=== PATIENT | female | born 1970 | race Caucasian/White ===

== ENCOUNTER 2022-02-07 08:57 | Outpatient (CLI) | payer OTHER, SELFPAY ==
--- NOTE | ~2022-02-07 | MR_ITS ---
. EXAMINATION: MR lumbar spine wo con DATE: 02/07/2022 10:17 INDICATION: Low back pain. TECHNIQUE: Magnetic resonance imaging (MRI) of the lumbar spine was performed without intravenous con trast. Sequences included sagittal T2-weighted FSE, sagittal T2-weighted FS FSE, sagittal T1-weighted FSE, and axial T2-weighted FSE. COMPARISON: None FINDINGS: There are chronic bilateral L5 pars defects. There is 3 mm retrolisthesis of L1 on L2. Ther e is 3 mm anterolisthesis of L5 on S1. There is mild chronic height loss of L5 vertebral body posteri alexx. There is mildly decreased disc height at L1-L2 and L4-L5 and severely decreased disc height at L5-S1. The distal spinal cord signal intensity is normal. The conus medullaris is at T12-L1. The foll owing disc levels are specifically discussed: L1-L2: The disc is bulging and has an annular fissure. There is mild bilateral facet joint osteoarthr itis. There is mild bilateral neural foraminal stenosis. There is mild central canal stenosis. L2-L3: The disc is bulging. There is mild bilateral facet joint osteoarthritis. There is mild bilater al neural foraminal stenosis. There is mild central canal stenosis. L3-L4: The disc is bulging. There is severe bilateral facet joint osteoarthritis. There is mild bilat eral neural foraminal stenosis. There is mild central canal stenosis. L4-L5: The disc is bulging and has an annular fissure. There is mild bilateral facet joint osteoarthr itis. There is mild bilateral neural foraminal stenosis. There is mild central canal stenosis. L5-S1: The disc is bulging and has an annular fissure. There is mild bilateral facet joint osteoarthr itis. There is mild bilateral neural foraminal stenosis. There is mild central canal stenosis. IMPRESSION: 1. Severe lower lumbar spondylosis. 2. Chronic bilateral L5 pars defects with grade 1 anterolisthesis of L5 on S1. Reviewed, dictated and finalized at location A.
--- NOTE | ~2022-02-07 | MR_ITS ---
EXAMINATION: MR cervical spine wo con DATE: 02/07/2022 10:13 INDICATION: Neck pain. TECHNIQUE: Magnetic resonance imaging (MRI) of the cervical spine was performed without intravenous c ontrast. Sequences included sagittal T2-weighted FSE, sagittal T2-weighted FS FSE, sagittal T1-weight ed FSE, axial MERGE, and axial T2-weighted FSE. COMPARISON: Cervical spine MRI 12/20/2016 FINDINGS: There is 2 mm additional listhesis of C6 on C7 and 2 mm anterolisthesis of C7 on T1. Verteb ral body heights are normal. There is severely decreased disc height at C6-C7 and mildly decreased di sc height at C7-T1. The spinal cord signal intensity is normal. The following disc levels are specifi antoine discussed: C2-C3: The disc does not extend beyond the endplate margin. There is no uncovertebral joint osteoarth ritis. There is mild bilateral facet joint osteoarthritis. There is no neural foraminal stenosis. The re is no central canal stenosis. C3-C4: The disc is bulging. There is moderate right and mild left uncovertebral joint osteoarthritis. There is severe right facet joint osteoarthritis. There is mild right neural foraminal stenosis. The re is mild central canal stenosis. C4-C5: The disc does not extend beyond the endplate margin. There is no uncovertebral joint osteoarth ritis. There is no facet joint osteoarthritis. There is no neural foraminal stenosis. There is no pedro tral canal stenosis. C5-C6: The disc is bulging. There is moderate right and mild left uncovertebral joint osteoarthritis. There is no facet joint osteoarthritis. There is no neural foraminal stenosis. There is mild central canal stenosis. C6-C7: The disc is bulging. There is severe bilateral uncovertebral joint osteoarthritis. There is se nicky left facet joint osteoarthritis. There is mild right and moderate left neural foraminal stenosis . There is mild central canal stenosis. C7-T1: There is a central extrusion. There is mild bilateral uncovertebral joint osteoarthritis. Ther e is severe bilateral facet joint osteoarthritis. There is mild right and moderate left neural forami nal stenosis. There is mild central canal stenosis. IMPRESSION: 1. Severe cervical spondylosis, worsened from 12/20/16. Reviewed, dictated and finalized at location A.
== END 2022-02-07 08:58 | disposition home or self-care (01) ==
PROVIDERS: PCP Family Medicine; Visit Provider Physician Assistant Medical
DX: M47.892 Other spondylosis, cervical region (principal); M47.896 Other spondylosis, lumbar region
CPT/HCPCS: 72141; 72148

== ENCOUNTER 2022-07-16 01:04 | Day surgery (SDC) | payer MEDICARE, SELFPAY ==
[2022-07-11 14:14] VITALS: BMI 28.5
--- NOTE | 2022-07-11 15:09 | SUR.PREOP ---
Report to the Outpatient Waiting Room, entrance under the green pavilion located off [facility], at time 0800 on date 07/16/22. OR Time: 1000. Time changes happen often and if your time is changed the preop area will call you the afternoon before. - You and your visitor will be asked to self-screen and do not enter if you have any COVID symptoms. - Only one visitor and NO children visitors are allowed at this time. - The patient visitor is requested to leave or wait in car when not with patient due to restrictions. - A mask is required within the hospital. Patients may have clear liquids (water, carbonated beverages, clear teas, apple juice) until 3 hours prior to surgery with a maximum of 20 ounces. - No food from midnight until time of surgery - Infants may have breast milk until 4 hours before surgery, infant formula 6 hours prior to surgery. - Children will be allowed to drink immediately following surgery. If applicable, please bring a bottle or sippy cup to assist with drinking. Juice, water, soda, and popsicles are readily available. For infants on formula, please bring formula the day of surgery. Pacifiers are allowed. Take the following medications with a SIP of water the morning of surgery: MAY TAKE TRAMADOL IF NEEDED Medications to discontinue per physician HOLD ALL VITAMINES AND SUPPLIMENTS FOR 3 DAYS PRIOR TO PROCEDURE Date to take last dose 07/13/22 Please no make-up, nail trinidadian, hairspray, perfume, deodorant, or body powder the day of surgery. No jewelry (including any body piercings) or valuables the day of surgery, leave them at home. Please take a shower or bath the night before, or the morning of, surgery with an antibacterial soap. Wear comfortable, loose fitting clothing. Children are encouraged to wear pajamas. - Jewelry must be removed prior to entering the operating room. Rings and piercings that are not removed may be cut off. - The hospital will not accept responsibility for valuables. - Please leave all valuables, including medications, at home the day of surgery. If you are going home after surgery, a licensed school boat driver must drive you home. - NO public transportation without another adult. - We recommend that an adult stay with you for 24 hours following discharge. - We also recommend that you do not drive, make important decision, drink alcoholic beverages, or take any drugs that were not prescribed by your health care provider for at least 24 hours after your discharge time. For Pediatric surgeries, we recommend two adults accompany the child home (only one inside the building at this time). Follow any additional instructions given to you from your surgeon. If you or anyone in your household have experienced Covid symptoms in the past week, please notify your surgeon or the nurse liaison at the phone number below for possible testing. Telephone instructions given to DON LEE and asked if any additional questions and then verbalized understanding. Patient advised to call surgeon office or pre surgery nurse liaison [phone] if any additional questions.
[2022-07-16] VITALS (10 sets, daily range): BP systolic 116–133; BP diastolic 78–88; PULSE 69–81; RESP 12–15; TEMP 36.6–37.2; O2SAT 92–100
[2022-07-16] MEDS: LACTATED RINGERS 1,000 ML 30 ML IV CONT ×2 (09:10→11:40)
--- NOTE | 2022-07-16 09:14 | WPDHPUPDATE1 ---
History and Physical Update Update Date/Time: 07/16/22 09:14 History and Physical has been reviewed, including an updated exam of the patient. There are NO changes in the patient's condition. Risks, benefits, and alternatives have been discussed and questions answered. Patient agrees to proceed with procedure.
[2022-07-16] MEDS: KETOROLAC 15 MG/ML VIAL (*BKC) IV PUSH (09:20)
[2022-07-16] MEDS: ACETAMINOPHEN 500 MG TABLET 1000 MG PO (09:20)
[2022-07-16] MEDS: SCOPOLAMINE 1.5 MG PATCH TRANSDERM (09:33)
--- NOTE | 2022-07-16 09:37 | WPDANESEPPF ---
Anes - Initial Pre Proc Eval Procedure: Operation Date: 07/16/22 10:00 Proposed Procedures p Right Thumb Carpometacarpal Arthroplasty - Ramos Polk MD Date/Time: 07/16/22 09:37 Surgeon: Ramos Polk MD Pre Op Diagnosis: Rt Thumb CMC Arthritis Patient Data Age: 52 Gender: F Height: 1.68 m Weight: 80.4 kg Last Vital Signs Temp 37.2 C 07/16/22 09:05 Pulse 77 07/16/22 09:05 Resp 14 07/16/22 09:05 BP 132/88 07/16/22 09:05 Pulse Ox 100 07/16/22 09:05 O2 Del Method Room Air 07/16/22 09:05 Allergies Allergy/AdvReac Type Severity Reaction Status Date / Time Cephalosporins Allergy Mild HIVES Verified 07/16/22 09:02 cefprozil Allergy Unknown Hives Verified 07/16/22 09:02 Penicillins Allergy Unknown Rash Verified 07/16/22 09:02 morphine AdvReac Intermediate Hyperactive Verified 07/16/22 09:02 Home Medications Medication Instructions Recorded Confirmed Type sumatriptan succinate 25 mg tablet See Rx Instructions PO .COMPLEX 09/27/20 07/11/22 Rx #30 tabs triamcinolone acetonide 0.1 % See Rx Instructions .Route 11/27/20 07/11/22 Rx topical cream .COMPLEX #80 grams magnesium 200 mg tablet 200 mg PO DAILY 12/22/20 07/11/22 History tramadol 50 mg tablet 50 mg PO Q6H PRN pain #60 tabs 05/03/22 07/11/22 Rx meloxicam 7.5 mg tablet 7.5 mg PO DAILY #30 tabs 05/14/22 07/11/22 Rx Patient hx anesthesia problems: none Family hx anesthesia problems: none Results Review: All pre-operative results and documents have been reviewed as part of the pre-operative evaluation. [facility] Past Medical History Medical History BMI 28.0-28.9,adult Cervicalgia Concussion COVID-19 Finger fracture, right (~2002) fourth finger Medial meniscus tear (~2011) left Obesity (BMI 30.0-34.9) Osteoarthritis of carpometacarpal joint of right thumb Right knee pain Rotator cuff tear (~2007) right Tinea pedis Wears contact lenses Surgical History Surgical History H/O section (~1998) History of arthroplasty (~2017) left thumb CMC History of arthroscopic surgery of elbow (~2009) right History of arthroscopic surgery of elbow (~2005) left History of arthroscopic surgery of elbow (~2003) left History of arthroscopy of shoulder (~2007) right, rotator cuff tear History of arthroscopy of shoulder (~2016) right, bone spurs History of hysterectomy (~2017) History of ovarian cystectomy (~2013) Hx of bilateral oophorectomy (~2017) Hx of cholecystectomy (~1994) Family History Family History Father Diabetes mellitus Family history of cardiovascular disease Mother Hypertension Cerebrovascular accident Other Family history of allergic disorder Family history of malignant neoplasm Social History Social History Smoking status: Never smoker Additional smoking assessment comments: (not tobacco) Alcohol intake: current Substance use: current Substance use type: marijuana Other substance usage details: DAILY Living arrangements: with family Additional occupation/education comments: disabled Gender identity (if verbalized by the patient): Female Spiritual care concerns: No Anes - Eval Final PreProcedure Day of Procedure 07/16/22 09:37 Patient weight: overweight Heart: regular rate and rhythm Lungs: clear to auscultation Airway: Mallampati scale class II Neurological: alert and oriented Last oral intake: >/= 8 hours ASA classification: III Emergent: no Anesthetic plan: proceed Anesthesia type and monitoring: general LMA and standard monitoring Results Review: All pre-operative results and documents have been reviewed as part of the pre-operative evaluation. Informed Consent: The patient's anesthetic plan and its attendant risks and benefits wer
--- NOTE | 2022-07-16 09:38 | WPDANESPNB ---
Anes - Peripheral Nerve Block Date/Time: 07/16/22 09:38 I have discussed with the patient/family/POA the placement of a peripheral nerve block for post-operative pain management, including associated risks, benefits, complications, and side effects. Alternative methods of post-operative analgesia were detailed. Questions were solicited and answers provided to the satisfaction of the patient/family/POA. Time-Out: A pre-procedural Time-Out was completed immediately before starting the procedure and confirmed: Patient Identification, Site, Procedure, Patient Position and the Availability of Requisite Equipment. Clinical Indications: Acute post-operative pain management requested by the operative surgeon. Nerve Block Insertion Note Anes-nerve block: supraclavicular right Patient position: supine Skin prep: chlorhexidine Needle: 22 gauge, stimulating, insulated echogenic needle. Needle length: 50 mm Technique: ultrasound Injectate: bupivacaine 0.5% with epi 5 mcg/ml Complications: none Procedure start time:: 929 Procedure end time:: 936
[2022-07-16] MEDS: CLINDAMYCIN 900 MG/D5W 50 ML 900 MG/50 ML PIGGYBACK 50 MG IVPB (09:41)
--- NOTE | 2022-07-16 11:54 | W.PM.PROC2 ---
Procedure Note - Detailed Date of Procedure 07/16/22 Pre-op Diagnosis Rt Thumb CMC Arthritis Post-op Diagnosis Same Procedure Performed Right thumb CMC arthroplasty Surgeon Ramos Polk MD [employer] Kayce Galicia Anesthesia General Description of Procedure The patient was identified proper site identified. In the preop holding area the anesthesia team performed a right upper extremity block. She was then taken to the operating room transferred to the OR table placing her supine taking care to pad the torso and extremities. After general anesthetic induction and intubation, a nonsterile tourniquet was placed high on the right arm. The right upper extremity was prepped and draped in usual sterile fashion. Extremity was exsanguinated and tourniquet was inflated to 300 mmHg remaining up for approximately 57 minutes. A longitudinal incision was made over the FCR tendon curving radially at the base of the thenar musculature. Subcutaneous tissue bluntly dissected protecting neurovascular structures. A slip of the APL which inserted into the thenar musculature was released and marked for later repair. The thenar musculature was elevated up off of the carpus and the trapezium identified. While protecting the FCR, a trapeziectomy was performed. The a ulnar-sided distally-based 8 cm slip of FCR was then developed hand used to create a sling weaving the tendon slip between the FCR tendon and the APL tendon securing it to itself with 3-0 Ethibond suture. The EPL tendon was advanced on itself and also secured with 3-0 Ethibond suture seating the sling in the trapeziectomy site. This allowed the thumb to sit very nicely in a position of function. The EPB tendon was then reefed also with 3-0 Ethibond taking up the slack in that structure. The wound was irrigated with sterile antibiotic solution. The wrist capsule and thenar musculature were tacked back down with 4-0 Monocryl. The slip of the EPL was reattached to the thenar musculature with 3-0 Ethibond. Tourniquet was released and hemostasis carried out. Skin edges reapproximated with 4-0 Monocryl and 4-0 Prolene subcuticular stitch. Steri-Strips were applied. Sterile dressing was applied. Well-padded thumb spica splint was fashioned. The patient tolerated procedure well . She was awakened extubated and taken to recovery area in stable condition. There were no known intraoperative complications. Estimated blood loss was negligible. Perioperative antibiotics were administered. Estimated Blood Loss -20.0 Tourniquet Time 57 Drains No Packing No Pathology None sent Complications No immediate complications Condition Stable Disposition PACU
== END 2022-07-16 13:46 | disposition home or self-care (01) ==
PROVIDERS: PCP Family Medicine; Visit Provider Orthopaedic Surgery
PROC: (CPT 25447; principal; 2022-07-16 10:00)
DX: M18.11 Unilateral primary osteoarthritis of first carpometacarpal joint, right hand (principal); Z86.16 Personal history of COVID-19; G89.18 Other acute postprocedural pain; Z90.49 Acquired absence of other specified parts of digestive tract; F12.90 Cannabis use, unspecified, uncomplicated
CPT/HCPCS: 25447; 64415; A9270; J1100; J1885; J2250; J2405; J2704; J3010; J7120

== ENCOUNTER 2022-10-02 10:00 | Outpatient (RCR) | payer MEDICARE, SELFPAY ==
--- NOTE | 2022-08-05 12:51 | OTOPEVAL1 ---
Assessment and note entered by Frida Breen OTR/[place] Evaluation Information Assessment Status Evaluation Diagnosis R UE 1st CMC arthroplasty Subjective Information Patient reports difficulties with completing daily tasks with R UE, pain/soreness with any use of R UE at this time. Patient is motivated and reports is ready to be able to use hand like normal. Reported Pain Level Pain Score 5: Self Report Assessment OT Clinical Summary Sarai is a 52 year old right handed female who is 3 weeks s/p R 1st CMC arthroplasty. Today the patient was instructed in active ROM HEP materials . Patient demonstrated and verbalized good understanding of exercises. Continued skilled OT is indicated for use of modalities, progress HEP, progress functional ROM, and build strength in order to facilitate optimal functional use of R UE hand. Plan of Care Interventions Therapeutic Exercise,Manual Therapy,Therapeutic Activities,Hot Pack/Cold Pack,Ultrasound,Paraffin OT Services Indicated Yes These treatments will address the objective and functional deficits as defined above. The patient will be advanced safely and appropriately in order for the patient to progress towards his/her prior level of function. Additional exercises will be introduced and as well as a comprehensive home exercise program upon discharge, if needed, ?to ensure carryover of functional gains achieved in the clinic. This treatment plan has been reviewed and agreement upon by the patient.
--- NOTE | 2022-09-04 10:44 | OTOPPROG ---
Assessment and note entered by Frida Breen OTR/[place] Evaluation Information Assessment Status Re-evaluation Diagnosis R UE 1st CMC arthroplasty Subjective Information Patient is s/p R 1st CMC arthroplasty on 07/16/2022 . Patient is currently 7 weeks post op. Patient reports has transitioned out of using splint and only uses it if pain increases and has used hand a lot in a day. Patient reports hand still needs to build up strength. Patient reports difficulty with using hand to lift objects due to weakness in hand. Assessment OT Clinical Summary Sarai presents to outpatient status post R UE thumb CMC joint arthroplasty, 7 weeks post op. Patient has made good progress with active ROM of thumb including MCP flexion, IP flexion, CMC radial/dee abduction. Patient is able to reach base of digit 5 with thumb. Patient has complaints of decreased strength in thumb and hand in addition to scar sensitivity. Patient would benefit from continued OT to address strengthening , desensitization of scar, ROM in order to increase participation with functional ADLs and activities. Plan of Care Interventions Therapeutic Exercise,Manual Therapy,Therapeutic Activities,Hot Pack/Cold Pack,Ultrasound,Paraffin OT Services Indicated Yes These treatments will address the objective and functional deficits as defined above. The patient will be advanced safely and appropriately in order for the patient to progress towards his/her prior level of function. Additional exercises will be introduced and as well as a comprehensive home exercise program upon discharge, if needed, ?to ensure carryover of functional gains achieved in the clinic. This treatment plan has been reviewed and agreement upon by the patient.
--- NOTE | 2022-09-11 10:38 | PCOTNOTE ---
Patient called & cancelled scheduled appointment this date due to being sick.
--- NOTE | 2022-10-02 10:32 | OTOPDC ---
Assessment and note entered by Frida Breen OTR/[place] Evaluation Information Assessment Status Discharge Diagnosis R UE 1st CMC arthroplasty Subjective Information Patient is s/p R 1st CMC arthroplasty on 07/16/2022 . Patient is currently 11 weeks post op. 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 Patient reports is using hand like normal and is getting stronger. Reported Pain Level Pain Score 3: Self Report Assessment OT Clinical Summary Sarai presents to outpatient status post R UE thumb CMC joint arthroplasty, 11 weeks post op. Patient reports is now able to complete all daily and functional tasks. Patient has met all goals with active ROM of thumb including MCP flexion, IP flexion, CMC radial/dee abduction. Patient is able to reach base of digit 5 with thumb. Patient is able to tolerate theraputty strengthening well. Patient to be discharged from skilled OT at this time with all goals met and independence with HEP materials. Patient in agreement with plan. Plan of Care OT Services Indicated No
== END 2022-10-02 16:34 | disposition home or self-care (01) ==
LOC: ANHGOSHOT 10:00
PROVIDERS: PCP Family Medicine; Visit Provider Orthopaedic Surgery
DX: M18.11 Unilateral primary osteoarthritis of first carpometacarpal joint, right hand (principal)
CPT/HCPCS: 97018; 97110; 97140; 97165; 97168